=== PATIENT | male | born 1935 | race Caucasian/White ===

== ENCOUNTER 2016-11-15 19:36 | Inpatient (IN) | payer MEDICARE, BC ==
[~2016-11-15] VITALS: Ht 180.3 cm; Wt 54.4 kg
[~2016-11-15 19:36] MED LIST: AMLO10TA4 PO; APIX2.5T PO; ASPI-496 PO; CHOL20002 PO; EZET1TAB30 PO; FINA5TAB PO; FLUT16SP NAS; LEVO7.5T11 PO; METO25TA2 PO; METO25TA91 PO; MULT-750 PO; RAMI10CA36 PO
[2016-11-15] MEDS ORDERED: SODIUM CHLORIDE FLUSH 10ML SYR IVF ONE (20:00)
[2016-11-15 20:16] LABS: HEMATOCRIT 40.3 % (39.2-51.8); HEMOGLOBIN 13.7 g/dL (13.7-18.0); WHITE BLOOD COUNT 6.6 x10^3/uL (3.4-10)
[2016-11-15 20:26] LABS: BLOOD UREA NITROGEN 19 mg/dL (7-18)
[2016-11-15] MEDS ORDERED: DOCUSATE 100 MG CAPSULE PO PRN (23:30)
[2016-11-15] MEDS ORDERED: ACETAMINOPHEN 325 MG TABLET PO PRN (23:30)
[2016-11-15] MEDS ORDERED: DIPHENHYDRAMINE 25 MG CAPSULE PO PRN (23:30)
[2016-11-15] MEDS ORDERED: ONDANSETRON ODT 4 MG PO PRN (23:30)
[2016-11-15] MEDS ORDERED: ENALAPRILAT 1.25 MG/ML, 2ML IVPush PRN (23:30)
[2016-11-16 01:22] VITALS: BP 141/83
[2016-11-16 05:48] LABS: HEMATOCRIT 36.3 % (39.2-51.8); HEMOGLOBIN 12.4 g/dL (13.7-18.0)
[2016-11-16 07:00] VITALS: BP 109/69
[2016-11-16 09:00] VITALS: BP 124/63
[2016-11-16] MEDS: RAMIPRIL 2.5 MG CAPSULE PO SCH ×2 (09:42→20:50)
[2016-11-16] MEDS: CHOLECALCIFEROL 1,000 UNIT TABLET PO SCH (09:43)
[2016-11-16] MEDS: FINASTERIDE 5 MG TABLET PO SCH (09:44)
[2016-11-16] MEDS: MULTIVITAMIN 1 TABLET PO SCH (09:44)
[2016-11-16] MEDS: METOPROLOL SUCCINATE 25 MG TAB.ER.24H PO SCH (09:45)
[2016-11-16 11:17] LABS: HEMATOCRIT 36.9 % (39.2-51.8); HEMOGLOBIN 12.6 g/dL (13.7-18.0)
[2016-11-16 13:37] VITALS: BP 118/58
[2016-11-16 19:50] VITALS: BP 122/64
[2016-11-16] MEDS ORDERED: SIMVASTATIN 20 MG TABLET PO SCH (21:00)
[2016-11-16] MEDS ORDERED: EZETIMIBE 10 MG TABLET PO SCH (21:00)
[2016-11-16 23:06] LABS: HEMOGLOBIN 12.3 g/dL (13.7-18.0)
[2016-11-17 01:29] VITALS: BP 116/60
[2016-11-17 05:46] LABS: HEMATOCRIT 36.2 % (39.2-51.8); HEMOGLOBIN 12.5 g/dL (13.7-18.0); WHITE BLOOD COUNT 6.5 x10^3/uL (3.4-10)
[2016-11-17 05:57] LABS: BLOOD UREA NITROGEN 18 mg/dL (7-18)
[2016-11-17 08:07] VITALS: BP 137/70
[2016-11-17] MEDS: RAMIPRIL 2.5 MG CAPSULE PO SCH (08:14)
[2016-11-17] MEDS: FINASTERIDE 5 MG TABLET PO SCH (08:15)
[2016-11-17] MEDS: METOPROLOL SUCCINATE 25 MG TAB.ER.24H PO SCH (08:15)
[2016-11-17] MEDS: MULTIVITAMIN 1 TABLET PO SCH (08:15)
[2016-11-17] MEDS: CHOLECALCIFEROL 1,000 UNIT TABLET PO SCH (08:15)
[2016-11-17 10:46] VITALS: BP 121/65
== END 2016-11-17 12:06 | disposition home or self-care (01) | DRG 696 ==
LOC: ED 22:30 → INTOOBSV 22:35 → EDIP 22:35 → ED 22:44 → 4NOR 11-16 01:23 → OBSVTOIN 11-17 10:06
PROVIDERS: ADMIT Family Medicine; ATTEND Family Medicine
DX: R31.0 Gross hematuria (principal); D68.69 Other thrombophilia; I48.2 Chronic atrial fibrillation; I11.9 Hypertensive heart disease without heart failure; N40.0 Benign prostatic hyperplasia without lower urinary tract symptoms; E78.5 Hyperlipidemia, unspecified; I25.10 Atherosclerotic heart disease of native coronary artery without angina pectoris; N28.1 Cyst of kidney, acquired; T50.995A Adverse effect of other drugs, medicaments and biological substances, initial encounter; N32.9 Bladder disorder, unspecified; Z79.01 Long term (current) use of anticoagulants; Z95.1 Presence of aortocoronary bypass graft; Y92.89 Other specified places as the place of occurrence of the external cause; Z90.79 Acquired absence of other genital organ(s); K80.20 Calculus of gallbladder without cholecystitis without obstruction
CPT/HCPCS: 36415; 74176; 80048; 81001; 82040; 83605; 85014; 85018; 85025; 85610; 85730; 87086; 93005; G0378

== ENCOUNTER 2019-12-31 08:48 | Outpatient (CLI) | payer MEDICARE, BC ==
[~2019-12-31 08:48] MED LIST changes: -CHOL20002 PO; +CHOL200052 PO; -FLUT16SP NAS; +FLUT16SP24 NAS; +REGADENOSON 0.4 MG/5 ML SYRINGE ONE
== END 2019-12-31 23:59 | disposition home or self-care (01) ==
LOC: CFH 08:48
PROVIDERS: ATTEND Internal Medicine Cardiovascular Disease
DX: I48.91 Unspecified atrial fibrillation (principal)
CPT/HCPCS: 78452; 93017; A9502; J2785

== ENCOUNTER → 2020-01-04 | Outpatient (CLI) | payer MEDICARE, BC ==
[~2020-01-04] MED LIST changes: -REGADENOSON 0.4 MG/5 ML SYRINGE ONE
== END | disposition home or self-care (01) ==
LOC: CVU 07:02
PROVIDERS: ATTEND Internal Medicine Cardiovascular Disease
DX: I08.3 Combined rheumatic disorders of mitral, aortic and tricuspid valves (principal); I10 Essential (primary) hypertension; I47.1 Supraventricular tachycardia; Z95.1 Presence of aortocoronary bypass graft
CPT/HCPCS: 93306

== ENCOUNTER 2020-09-20 13:19 | Emergency (ER) | payer MEDICARE, BC ==
[~2020-09-20] VITALS: Ht 172.7 cm; Wt 52.0 kg
[~2020-09-20 13:19] MED LIST changes: +MULT-482 PO; -MULT-750 PO
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
--- NOTE | 2020-09-20 17:09 | NUR ---
EDMD AT BEDSIDE.
[2020-09-20] MEDS ORDERED: LIDODERM 5% PATCH TD ONE ×2 (17:27→17:30)
[2020-09-20] MEDS ORDERED: ACETAMINOPHEN 500 MG TABLET ONE (17:28)
[2020-09-20] MEDS ORDERED: ACETAMINOPHEN 500 MG TABLET PO ONE (17:30)
[2020-09-20 19:03] VITALS: BP 125/78
== END 2020-09-20 19:04 | disposition home or self-care (01) ==
LOC: ED 18:18
DX: S39.012A Strain of muscle, fascia and tendon of lower back, initial encounter (principal); S61.402A Unspecified open wound of left hand, initial encounter; I48.91 Unspecified atrial fibrillation; G20 Parkinson's disease; W01.0XXA Fall on same level from slipping, tripping and stumbling without subsequent striking against object, initial encounter; Y93.89 Activity, other specified; Y92.009 Unspecified place in unspecified non-institutional (private) residence as the place of occurrence of the external cause; Y99.8 Other external cause status
CPT/HCPCS: 72110; 72170; 99284